=== PATIENT | male | born 2005 | race Two or more races ===

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

== ENCOUNTER 2023-07-05 15:32 | Emergency (ER) | payer OTHER ==
[~2023-07-05] VITALS: Ht 167.6 cm; Wt 55.0 kg
[2023-07-05 15:34] VITALS: O2SAT 96
[2023-07-05] MEDS: LEVETIRACETAM 1000MG PREMIX 100 ML IV ONE (16:13)
[2023-07-05 16:20] LABS: BASOPHILS % 0.2 % (0.0-2.0); EOSINOPHILS % 0.6 % (0.0-5.0); HEMATOCRIT. 48.9 % (42.0-52.0); HEMOGLOBIN. 16.9 g/dL (14.0-18.0); LYMPHOCYTES % 14.7 % (20.0-50.0); MEAN CORPUSCULAR HEMOGLOBIN 30.7 pg (28.0-32.0); MEAN CORPUSCULAR HGB CONC 34.5 g/dL (31.0-37.0); MEAN PLATELET VOLUME 9.8 fl (7.4-10.4); MONOCYTES % 6.1 % (2.0-8.0); NEUTROPHILS % 78.4 % (40.0-76.0); PLATELET 202 x1000/uL (130-400); RED BLOOD CELL COUNT 5.49 mill/uL (4.7-6.1); RED CELL DISTRIBUTION WIDTH 13.2 % (11.6-14.6); WHITE BLOOD COUNT 10.6 x1000/uL (4.5-11.0)
[2023-07-05 16:30] VITALS: BP 115/71; PULSE 98; RESP 14; TEMP 97.6
[2023-07-05 16:39] LABS: ALANINE AMINOTRANSFERASE 7 IU/L (10-49); ALBUMIN 5.1 g/dL (3.2-4.8); ASPARTATE AMINOTRANSFERASE 16 IU/L (<34); BILIRUBIN TOTAL 0.4 mg/dL (0.1-1.0); CALCIUM 9.2 mg/dL (8.7-10.4); CARBON DIOXIDE 25 mEq/L (21-32); CHLORIDE 106 mEq/L (98-107); CREATININE 0.8 mg/dL (0.6-1.3); GLUCOSE 98 mg/dL (70-105); POTASSIUM 3.7 mEq/L (3.5-5.1); PROTEIN TOTAL 8.2 g/dL (6.0-8.3); SODIUM 140 mEq/L (136-145); UREA NITROGEN BLOOD 13 mg/dL (9-23)
[2023-07-05 16:44] LABS: ETHANOL BLOOD < 10 mg/dL (<10)
== END 2023-07-05 17:25 | disposition home or self-care (01) ==
LOC: ER 15:32
DX: R56.9 Unspecified convulsions (principal)
CPT/HCPCS: 80053; 80320; 85025; 36415; 96365; 99284; J1953; G0480